=== PATIENT | male | born 1995 | race Caucasian/White ===

== ENCOUNTER 2016-10-25 04:33 | Day surgery (SDC) | payer BC ==
[2016-11-03] MEDS ORDERED: PERCOCET 5-3251 EACH PO (09:16)
== END 2016-10-25 15:45 ==
LOC: BURN 04:33
PROC: 0JBK0ZZ Excision of Left Hand Subcutaneous Tissue and Fascia, Open Approach (ICD-10-PCS; principal; 2016-10-25)
PROC: 0JBJ0ZZ Excision of Right Hand Subcutaneous Tissue and Fascia, Open Approach (ICD-10-PCS; 2016-10-25)
DX: T23.001A Burn of unspecified degree of right hand, unspecified site, initial encounter (principal); T23.002A Burn of unspecified degree of left hand, unspecified site, initial encounter; Z90.89 Acquired absence of other organs; X03.0XXA Exposure to flames in controlled fire, not in building or structure, initial encounter
CPT/HCPCS: G0378; J2270